=== PATIENT | female | born 1970 ===

== ENCOUNTER → 2018-07-28 18:41 | Outpatient (REF) | payer OTHER, SELFPAY ==
[2018-07-28 20:08] LABS: Folate 16.1 ng/mL (2.76-20.0); Vitamin B12 453 pg/mL (239-931)
== END ==
LOC: LAB 18:41
PROVIDERS: Visit Provider Family Medicine
DX: D64.9 Anemia, unspecified (principal)
CPT/HCPCS: 82607; 82728; 82746